=== PATIENT | male | born 1985 | race Caucasian/White ===

== ENCOUNTER 2023-01-02 15:04 | Emergency (ER) | payer SELFPAY ==
[2023-01-02 15:15] VITALS: BP 122/72; PULSE 76; RESP 18; TEMP 98.3; BMI 22.9
== END 2023-01-02 16:38 | disposition home or self-care (01) ==
LOC: FER 15:04
DX: M54.50 Low back pain, unspecified (principal); R07.81 Pleurodynia
CPT/HCPCS: 71046-TC-FY; 71101-TC-RT-FY; 81003; 81015; 99284-25